=== PATIENT | male | born 1980 | race Caucasian/White ===

== ENCOUNTER 2023-12-05 10:33 | Inpatient (IN) | payer MEDICAID ==
[~2023-12-05] VITALS: Ht 185.4 cm; Wt 112.9 kg
[2023-12-05 10:47] VITALS: BP_SYST 120; PULSE 129; RESP 18; TEMP 99.4; O2SAT 99
[2023-12-05 11:19] LABS: BASOPHILS # (AUTO) 0.1 K/uL (0.0-0.2); EOSINOPHILS % (AUTO) 0.1 % (0.0-4.0); RED CELL DISTRIBUTION WIDTH 13.6 % (9.0-15.0)
[2023-12-05 11:34] LABS: ANION GAP 12 (5-15); BASOPHILS % (AUTO) 0.4 % (0.0-2.0); CALCIUM 9.1 mg/dL (8.4-11.0); CARBON DIOXIDE 26 mmol/L (23-29); CHLORIDE 99 mmol/L (98-107); CREATININE 1.23 mg/dL (0.55-1.30); GFR AFRICAN AMERICAN 83 mL/min (>90); GFR NON AFRICAN-AMERICAN 68 mL/min (>90); GLUCOSE 139 mg/dL (74-106); HEMATOCRIT 43.6 % (36-54); LYMPHOCYTES # (AUTO) 1.3 K/uL (1.0-5.5); LYMPHOCYTES % (AUTO) 6.4 % (20.5-51.5); MEAN CORPUSCULAR HEMOGLOBIN 30 pg (27-31); MEAN CORPUSCULAR HGB CONC 34 % (32-36); MEAN CORPUSCULAR VOLUME 86 fL (79.0-98.0); MONOCYTES # (AUTO) 1.7 K/uL (0.0-1.0); MONOCYTES % (AUTO) 8.3 % (1.7-9.3); NEUTROPHILS # (AUTO) 17.6 K/uL (1.8-7.7); NEUTROPHILS % (AUTO) 84.8 % (40.0-70.0); PLATELET COUNT (AUTO) 275 K/uL (130-430); POTASSIUM 3.9 mmol/L (3.5-5.1); RED BLOOD CELL COUNT(AUTO) 5.06 MIL/uL (4.2-6.2); SODIUM SERUM 137 mmol/L (136-145); UREA NITROGEN, BLOOD 17 mg/dL (8-21); WHITE BLOOD COUNT (AUTO) 20.7 K/uL (4.8-10.8)
[2023-12-05 12:20] LABS: BILIRUBIN,URINE NEGATIVE (NEGATIVE); BLOOD, URINE NEGATIVE (NEGATIVE); CLARITY/URINE CLEAR (CLEAR); COLOR,URINE YELLOW (YELLOW); GLUCOSE,URINE NEGATIVE (NEGATIVE); KETONES,URINE 1+ (NEGATIVE); LEUKOCYTE ESTERASE ,URINE NEGATIVE (NEGATIVE); NITRITE, URINE NEGATIVE (NEGATIVE); PROTEIN URINE 2+ (NEGATIVE)
[2023-12-05 12:34] LABS: BACTERIA,URINE None Seen /HPF (None Seen); RBC,URINE NONE SEEN /HPF (0-3); WBC,URINE 0-3 /HPF (0-3)
[2023-12-05 12:35] LABS: HYALINE CASTS, URINE 0-2 /LPF (None Seen)
[2023-12-05] MEDS ORDERED: MORPHINE 2 MG/ML INJ. SYRINGE IVP ONE (13:30)
[2023-12-05] MEDS ORDERED: PIPERACILLIN/TAZO 3.375 GM in NS 50 ML IV ONE ×2 (13:45)
[2023-12-05] MEDS: NACL 0.9% 1,000 ML IV SCH ×2 (14:22→23:43)
[2023-12-05] MEDS ORDERED: PIPERACILLIN/TAZOBACTAM 3.375 GM/VIAL (ZOSYN) IV ONE (14:29)
[2023-12-05] MEDS ORDERED: VANCOMYCIN HCL 1,500 MG in NS 250 ML IV ONE (15:00)
[2023-12-05] MEDS ORDERED: KETOROLAC TROMETHAMINE 30 MG VIAL IVP ONE (15:15)
[2023-12-05] MEDS ORDERED: NALOXONE HCL 2 MG/2 ML SYR (NARCAN) IVP PRN (16:00)
[2023-12-05] MEDS ORDERED: LORazepam 2 MG/ML VIAL IVP PRN (16:00)
[2023-12-05] MEDS ORDERED: ONDANSETRON HCL 4 MG/2 ML VIAL IVP PRN (16:00)
[2023-12-05] MEDS ORDERED: ZOLPIDEM TARTRATE 5 MG TABLET PO PRN (16:00)
[2023-12-05] MEDS ORDERED: MAGNESIUM SULFATE 50 ML IV PRN (16:00)
[2023-12-05] MEDS ORDERED: MUPIROCIN 2% TOPICAL OINTMENT 22 GM NS PRN (16:00)
[2023-12-05] MEDS ORDERED: DOCUSATE SODIUM 100 MG CAPSULE PO PRN (16:00)
[2023-12-05] MEDS ORDERED: ACETAMINOPHEN 500 MG TABLET PO PRN (16:00)
[2023-12-05] MEDS ORDERED: POTASSIUM CHLORIDE 20 MEQ TABLET.ER PO PRN (16:00)
[2023-12-05] MEDS ORDERED: NALOXONE HCL 2 MG/2 ML SYR IVP PRN (16:00)
[2023-12-05] MEDS: MORPHINE 2 MG/ML INJ. SYRINGE IVP PRN ×3 (17:57→23:18)
[2023-12-05 20:55] VITALS: BP_SYST 129; PULSE 103; RESP 16; TEMP 99.5; O2SAT 98
[2023-12-05] MEDS: PIPERACILLIN/TAZO 3.375/DEX-IS 50 ML IV SCH (21:10)
[2023-12-05 21:15] LABS: BARBITURATE, URINE NEGATIVE (NEG <=200); BENZODIAZEPINE, URINE NEGATIVE (NEG <=150); CANNABINOID, URINE NEGATIVE (NEG <=50); COCAINE, URINE NEGATIVE (NEG <=150); METHAMPHETAMINES SCREEN,URINE POSITIVE (NEG <=500); OPIATE, URINE NEGATIVE (NEG <=100); PHENCYCLIDINE SCREEN,URINE NEGATIVE (NEG <=25); URINE AMPHETAMINE POSITIVE (NEG <=500); URINE METHADONE NEGATIVE (NEG <=200); URINE OXYCODONE SCREEN NEGATIVE (NEG <=100)
[2023-12-05 21:16] LABS: UR TRICYCLIC ANTIDEPRESSANTS NEGATIVE (NEG <=300)
[2023-12-05 21:59] VITALS: TEMP 99.5
[2023-12-05 23:40] VITALS: BP_SYST 134; PULSE 99; RESP 18; TEMP 98.1; O2SAT 97
[2023-12-06] VITALS (7 sets, daily range): BP systolic 125–142; PULSE 83–98; RESP 18; TEMP 97–98.6; O2SAT 97–100
[2023-12-06] MEDS: MORPHINE 2 MG/ML INJ. SYRINGE IVP PRN ×3 (01:21→08:33)
[2023-12-06] MEDS: PIPERACILLIN/TAZO 3.375/DEX-IS 50 ML IV SCH ×4 (02:55→21:43)
[2023-12-06 05:57] LABS: BASOPHILS # (AUTO) 0.1 K/uL (0.0-0.2); BASOPHILS % (AUTO) 0.5 % (0.0-2.0); EOSINOPHILS # (AUTO) 0.1 K/uL (0.0-0.4); EOSINOPHILS % (AUTO) 0.6 % (0.0-4.0); HEMATOCRIT 38.4 % (36-54); HEMOGLOBIN 13.2 g/dL (14.0-18.0); LYMPHOCYTES # (AUTO) 1.4 K/uL (1.0-5.5); LYMPHOCYTES % (AUTO) 10.1 % (20.5-51.5); MEAN CORPUSCULAR HEMOGLOBIN 30 pg (27-31); MEAN CORPUSCULAR HGB CONC 34 % (32-36); MEAN CORPUSCULAR VOLUME 86 fL (79.0-98.0); MONOCYTES # (AUTO) 1.6 K/uL (0.0-1.0); MONOCYTES % (AUTO) 11.6 % (1.7-9.3); NEUTROPHILS # (AUTO) 10.4 K/uL (1.8-7.7); NEUTROPHILS % (AUTO) 77.2 % (40.0-70.0); PLATELET COUNT (AUTO) 255 K/uL (130-430); RED BLOOD CELL COUNT(AUTO) 4.45 MIL/uL (4.2-6.2); RED CELL DISTRIBUTION WIDTH 13.4 % (9.0-15.0); WHITE BLOOD COUNT (AUTO) 13.4 K/uL (4.8-10.8)
[2023-12-06 06:19] LABS: CALCIUM 8.2 mg/dL (8.4-11.0); CREATININE 0.93 mg/dL (0.55-1.30)
[2023-12-06] MEDS: NACL 0.9% 1,000 ML IV SCH ×2 (10:00→21:46)
[2023-12-06 14:12] LABS: PROTHROMBIN TIME 10.3 SECS (9.5-12.5)
[2023-12-06] MEDS ORDERED: NICOTINE 14 MG/24 HR PATCH.TD24 TD ONE (16:30)
[2023-12-07 00:43] VITALS: BP_SYST 151; PULSE 91; RESP 16; TEMP 98.5; O2SAT 99
[2023-12-07] MEDS: PIPERACILLIN/TAZO 3.375/DEX-IS 50 ML IV SCH ×2 (03:07→08:33)
[2023-12-07 05:26] LABS: BASOPHILS % (AUTO) 0.6 % (0.0-2.0); EOSINOPHILS # (AUTO) 0.2 K/uL (0.0-0.4); EOSINOPHILS % (AUTO) 2.2 % (0.0-4.0); HEMATOCRIT 41.1 % (36-54); LYMPHOCYTES # (AUTO) 1.8 K/uL (1.0-5.5); LYMPHOCYTES % (AUTO) 22.8 % (20.5-51.5); MEAN CORPUSCULAR HEMOGLOBIN 30 pg (27-31); MEAN CORPUSCULAR HGB CONC 34 % (32-36); MEAN CORPUSCULAR VOLUME 87 fL (79.0-98.0); MONOCYTES % (AUTO) 12.7 % (1.7-9.3); NEUTROPHILS # (AUTO) 4.9 K/uL (1.8-7.7); NEUTROPHILS % (AUTO) 61.7 % (40.0-70.0); PLATELET COUNT (AUTO) 304 K/uL (130-430); RED CELL DISTRIBUTION WIDTH 13.3 % (9.0-15.0)
[2023-12-07] MEDS: NACL 0.9% 1,000 ML IV SCH (06:04)
[2023-12-07 06:05] LABS: ALBUMIN 3.1 g/dL (3.4-4.8); BILIRUBIN,DIRECT 0.1 mg/dL (0.0-0.3); CALCIUM 8.9 mg/dL (8.4-11.0); CREATININE 0.84 mg/dL (0.55-1.30); POTASSIUM 4.5 mmol/L (3.5-5.1); TOTAL BILIRUBIN 0.4 mg/dL (0.0-1.0); TOTAL PROTEIN, SERUM 7.6 g/dL (6.4-8.3)
[2023-12-07 06:07] LABS: INR 0.9 (0.80-1.20); PROTHROMBIN TIME 9.8 SECS (9.5-12.5)
[2023-12-07 07:30] VITALS: BP_SYST 138; PULSE 84; RESP 16; TEMP 98
[2023-12-07] MEDS ORDERED: DOXYCYCLINE HYCLATE 100 MG CAPSULE PO SCH (09:00)
[2023-12-07] MEDS ORDERED: NICOTINE 14 MG/24 HR PATCH.TD24 TD SCH (09:00)
[2023-12-07 12:00] VITALS: BP_SYST 153; PULSE 91; RESP 18; TEMP 98.3; O2SAT 100
[2023-12-07] MEDS ORDERED: DOXY100C5 PO (13:05)
[2023-12-07] MEDS ORDERED: AUG875 PO (13:05)
[2023-12-07] MEDS ORDERED: cefTRIAXone 1 GM VIAL IM ONE (14:00)
[2023-12-07 14:05] VITALS: BP_SYST 138; PULSE 84; RESP 18; TEMP 98; O2SAT 98
== END 2023-12-07 14:30 | disposition home or self-care (01) | DRG 720 ==
LOC: SED 10:33 → SMU 13:47
PROVIDERS: ADMIT General Practice; ATTEND General Practice
DX: A41.9 Sepsis, unspecified organism (principal); E44.0 Moderate protein-calorie malnutrition; K40.30 Unilateral inguinal hernia, with obstruction, without gangrene, not specified as recurrent; F15.10 Other stimulant abuse, uncomplicated; N50.3 Cyst of epididymis; E66.9 Obesity, unspecified; Z56.0 Unemployment, unspecified; Z59.00 Homelessness unspecified; Z68.32 Body mass index [BMI] 32.0-32.9, adult; N45.1 Epididymitis
CPT/HCPCS: 36415; 71045; 76376; 76870-TC; 80048; 80076; 80307; 81000; 81001; 81015; 83037; 83605; 83735; 85025; 85610-TC; 85730-TC; 87491; 93005; 99285; J0696; J1885; J2270; J2543; J3370; J7050

== ENCOUNTER 2024-02-11 11:49 | Emergency (ER) | payer MEDICAID ==
[~2024-02-11] VITALS: Ht 185.4 cm; Wt 117.9 kg
[~2024-02-11 11:49] MED LIST: AUG875 PO; DOXY100C5 PO
[2024-02-11 11:50] VITALS: BP_SYST 165; PULSE 116; RESP 19; TEMP 97.6; O2SAT 96
[2024-02-11 12:50] LABS: BASOPHILS # (AUTO) 0.1 K/uL (0.0-0.2); BASOPHILS % (AUTO) 0.6 % (0.0-2.0); EOSINOPHILS # (AUTO) 0.1 K/uL (0.0-0.4); EOSINOPHILS % (AUTO) 1.2 % (0.0-4.0); HEMATOCRIT 43.2 % (36-54); HEMOGLOBIN 14.6 g/dL (14.0-18.0); LYMPHOCYTES # (AUTO) 1.4 K/uL (1.0-5.5); LYMPHOCYTES % (AUTO) 15.8 % (20.5-51.5); MEAN CORPUSCULAR HEMOGLOBIN 29 pg (27-31); MEAN CORPUSCULAR HGB CONC 34 % (32-36); MEAN CORPUSCULAR VOLUME 87 fL (79.0-98.0); MONOCYTES # (AUTO) 0.7 K/uL (0.0-1.0); MONOCYTES % (AUTO) 8.2 % (1.7-9.3); NEUTROPHILS # (AUTO) 6.8 K/uL (1.8-7.7); NEUTROPHILS % (AUTO) 74.2 % (40.0-70.0); PLATELET COUNT (AUTO) 324 K/uL (130-430); RED CELL DISTRIBUTION WIDTH 14.4 % (9.0-15.0); WHITE BLOOD COUNT (AUTO) 9.1 K/uL (4.8-10.8)
[2024-02-11 13:04] LABS: CALCIUM 8.6 mg/dL (8.4-11.0); CREATININE 0.93 mg/dL (0.55-1.30); POTASSIUM 3.8 mmol/L (3.5-5.1)
[2024-02-11 13:08] LABS: ALBUMIN 3.6 g/dL (3.4-4.8); BILIRUBIN,DIRECT 0.1 mg/dL (0.0-0.3); TOTAL BILIRUBIN 0.4 mg/dL (0.0-1.0); TOTAL PROTEIN, SERUM 7.6 g/dL (6.4-8.3)
[2024-02-11 13:09] LABS: PROTHROMBIN TIME 10.4 SECS (9.5-12.5)
[2024-02-11] MEDS ORDERED: HYDR-3917 PO (13:16)
[2024-02-11] MEDS ORDERED: IBUP-1971 PO (13:16)
[2024-02-11] MEDS: cloNIDine HCL 0.1 MG TABLET PO ONE (13:24)
[2024-02-11] MEDS: LORazepam 1 MG TABLET PO ONE (13:58)
[2024-02-11 14:03] VITALS: BP_SYST 150; PULSE 89; RESP 20; TEMP 97.6; O2SAT 98
== END 2024-02-11 13:55 | disposition home or self-care (01) ==
LOC: SED 11:49
DX: K40.90 Unilateral inguinal hernia, without obstruction or gangrene, not specified as recurrent (principal); R11.0 Nausea; Z79.899 Other long term (current) drug therapy
CPT/HCPCS: 36415; 80048; 80076; 82150; 83605; 83690; 85025; 85610; 85730; 99284

== ENCOUNTER 2024-02-16 01:34 | Emergency (ER) | payer MEDICAID ==
[~2024-02-16] VITALS: Ht 185.4 cm; Wt 113.4 kg
[~2024-02-16 01:34] MED LIST changes: +HYDR-3917 PO; +IBUP-1971 PO
[2024-02-16 01:40] VITALS: BP_SYST 149; PULSE 111; RESP 20; TEMP 98.9; O2SAT 97
[2024-02-16] MEDS: NACL 0.9% 1,000 ML IV ONE (02:12)
[2024-02-16] MEDS: KETOROLAC TROMETHAMINE 30 MG VIAL IVP ONE (02:18)
[2024-02-16 02:48] LABS: CALCIUM 7.9 mg/dL (8.4-11.0); CREATININE 0.89 mg/dL (0.55-1.30); POTASSIUM 3.4 mmol/L (3.5-5.1)
[2024-02-16 02:53] LABS: ALBUMIN 3.3 g/dL (3.4-4.8); BILIRUBIN,DIRECT 0.1 mg/dL (0.0-0.3); TOTAL BILIRUBIN 0.5 mg/dL (0.0-1.0); TOTAL PROTEIN, SERUM 6.9 g/dL (6.4-8.3)
[2024-02-16 02:58] LABS: BASOPHILS # (AUTO) 0.1 K/uL (0.0-0.2); BASOPHILS % (AUTO) 0.6 % (0.0-2.0); EOSINOPHILS # (AUTO) 0.1 K/uL (0.0-0.4); EOSINOPHILS % (AUTO) 0.8 % (0.0-4.0); HEMATOCRIT 39.9 % (36-54); HEMOGLOBIN 13.6 g/dL (14.0-18.0); LYMPHOCYTES # (AUTO) 1.6 K/uL (1.0-5.5); LYMPHOCYTES % (AUTO) 14.9 % (20.5-51.5); MEAN CORPUSCULAR HEMOGLOBIN 29 pg (27-31); MEAN CORPUSCULAR HGB CONC 34 % (32-36); MEAN CORPUSCULAR VOLUME 86 fL (79.0-98.0); MONOCYTES # (AUTO) 1.1 K/uL (0.0-1.0); MONOCYTES % (AUTO) 9.8 % (1.7-9.3); NEUTROPHILS % (AUTO) 73.9 % (40.0-70.0); PLATELET COUNT (AUTO) 305 K/uL (130-430); RED BLOOD CELL COUNT(AUTO) 4.66 MIL/uL (4.2-6.2); RED CELL DISTRIBUTION WIDTH 14.1 % (9.0-15.0); WHITE BLOOD COUNT (AUTO) 10.8 K/uL (4.8-10.8)
[2024-02-16] MEDS: MORPHINE 4 MG INJ. 4 MG/ML VIAL IVP ONE (03:36)
[2024-02-16] MEDS ORDERED: NAPR-1172 PO (04:40)
[2024-02-16 05:15] VITALS: BP_SYST 128; PULSE 101; RESP 18; TEMP 97.9; O2SAT 97
== END 2024-02-16 04:45 | disposition home or self-care (01) ==
LOC: SED 01:34
DX: K40.90 Unilateral inguinal hernia, without obstruction or gangrene, not specified as recurrent (principal); R10.30 Lower abdominal pain, unspecified; Z79.899 Other long term (current) drug therapy
CPT/HCPCS: 99285; 74176; 96374; 71045; 96361; 96375; 80076; 80048; 85025; 87040; 36415; 83605; J1885; J2270; J7030